=== PATIENT | female | born 1955 | race Caucasian/White ===

== ENCOUNTER 2024-04-11 05:48 | Day surgery (SDC) | payer MEDICARE ==
[2024-04-11 06:40] LABS: BASOPHILS ABSOLUTE AUTO 0.05 K/uL (0.00-0.10); BASOPHILS PERCENT AUTO 0.5 % (0.1-1.3); EOSINOPHILS ABSOLUTE AUTO 0.35 K/uL (0.00-0.40); EOSINOPHILS PERCENT AUTO 3.8 % (0.0-5.4); HEMOGLOBIN 14.3 g/dL (11.2-15.5); IMMATURE GRAN ABSOLUTE AUTO 0.06 K/uL (0.00-0.23); IMMATURE GRAN PERCENT AUTO 0.6 % (0.0-0.7); LYMPHOCYTES ABSOLUTE AUTO 2.67 K/uL (0.8-3.3); LYMPHOCYTES PERCENT AUTO 28.8 % (11.4-47.7); MEAN CORPUSCULAR HEMOGLOBIN 30.3 pg (31.6-35.5); MEAN CORPUSCULAR HGB CONC 32.5 g/dL (31.6-35.5); MEAN CORPUSCULAR VOLUME 93.2 fL (81.4-99.0); MONOCYTES ABSOLUTE AUTO 0.59 K/uL (0.20-0.90); MONOCYTES PERCENT AUTO 6.4 % (3.3-12.6); NEUTROPHILS ABSOLUTE AUTO 5.55 K/uL (1.0-7.6); NEUTROPHILS PERCENT AUTO 59.9 % (40.0-78.1); PLATELET COUNT,PLT 334 K/uL (130-375); RED BLOOD CELL COUNT 4.72 M/uL (3.77-5.24); WHITE BLOOD CELL COUNT,WBC 9.3 K/uL (3.2-11.0)
[2024-04-11 07:03] LABS: A/G RATIO 1.1 (1.2-2.2); ALANINE AMINOTRANSFERASE,ALT 30 U/L (12-78); ALBUMIN 3.9 g/dL (3.4-5.0); ALKALINE PHOSPHATASE 63 U/L (46-116); ANION GAP 11.2 mmol/L (5.0-14.0); ASPARTATE AMNIOTRANSFERASE,AST 17 U/L (15-37); BILIRUBIN TOTAL 0.5 mg/dL (0.2-1.0); BLOOD UREA NITROGEN,BUN 25 mg/dL (7-18); CALCIUM 9.6 mg/dL (8.5-10.1); CARBON DIOXIDE,CO2 28 mmol/L (21-32); CHLORIDE,CL 101 mmol/L (100-108); CREATININE 1.6 mg/dL (0.6-1.0); EST CRCL DRUG DOSING (CG) 34.42 mL/min; ESTIMATED GFR 35 mL/min (>60); GLUCOSE RANDOM 237 mg/dL (74-106); POTASSIUM,K 4.2 mmol/L (3.6-5.2); PROTEIN TOTAL,TP 7.4 g/dL (6.4-8.2); SODIUM,NA 140 mmol/L (140-148)
[2024-04-11] MEDS: Nozin Nasal Sanitizer NASBOTH ONE (07:03)
[2024-04-11] MEDS ORDERED: Propofol 200 MG/20 ML SDV ONE (07:22)
[2024-04-11] MEDS ORDERED: Ondansetron 4 MG/2 ML SDV ONE (07:22)
[2024-04-11] MEDS ORDERED: Neostigmine Methylsulfate 10 MG/10 ML MDV ONE (07:22)
[2024-04-11] MEDS ORDERED: Dexamethasone 4 MG/ML SDV ONE (07:22)
[2024-04-11] MEDS ORDERED: Glycopyrrolate 0.2 MG/ML 5 ML MDV ONE (07:22)
[2024-04-11] MEDS ORDERED: Rocuronium 50 MG/5 ML Vial ONE (07:22)
[2024-04-11] MEDS ORDERED: Succinylcholine 200 MG/10 ML MDV ONE (07:22)
[2024-04-11] MEDS ORDERED: fentaNYL 250 MCG/5 ML SDV ONE (07:22)
[2024-04-11] MEDS: Lactated Ringers 1,000 ML IV SCH (07:38)
[2024-04-11] MEDS: ceFAZolin 2 GM in Premix Bag 1 BAG IV ONE (08:22)
[2024-04-11] MEDS: Bupivacaine 0.5% 30 ML SDV ONE (08:37)
[2024-04-11] MEDS: Lidocaine 1% 50 ML MDV ONE (08:37)
== END 2024-04-11 10:45 | disposition home or self-care (01) ==
LOC: JP.SDS 05:48
PROVIDERS: ATTEND Specialist
DX: M86.171 Other acute osteomyelitis, right ankle and foot (principal); T84.629A Infection and inflammatory reaction due to internal fixation device of unspecified bone of leg, initial encounter; L97.519 Non-pressure chronic ulcer of other part of right foot with unspecified severity; I10 Essential (primary) hypertension; E78.5 Hyperlipidemia, unspecified
CPT/HCPCS: 01480; 20680; 28153; 36415; 80053; 82947; 85025; A9270; J0330; J0665; J0690; J1100; J1596; J2405; J2704; J2710; J3010; J7120; J3490